=== PATIENT | female | born 1955 | race Caucasian/White ===

== ENCOUNTER 2024-01-09 14:28 | Outpatient (CLI) | payer MEDICARE, OTHER | END 2024-01-09 14:29 | disposition home or self-care (01) | LOC: BURRAD 14:28 | PROVIDERS: ATTEND Physician Assistant | DX: M43.16 Spondylolisthesis, lumbar region (principal); M47.816 Spondylosis without myelopathy or radiculopathy, lumbar region; Z98.890 Other specified postprocedural states | CPT/HCPCS: 72100 ==

== ENCOUNTER 2024-04-17 08:57 | Outpatient (CLI) | payer MEDICARE, OTHER | END 2024-04-17 08:58 | disposition home or self-care (01) | LOC: BURRAD 08:57 | PROVIDERS: ATTEND Neurological Surgery | DX: M48.062 Spinal stenosis, lumbar region with neurogenic claudication (principal); M47.816 Spondylosis without myelopathy or radiculopathy, lumbar region; M16.0 Bilateral primary osteoarthritis of hip; Z98.1 Arthrodesis status | CPT/HCPCS: 72100 ==